=== PATIENT | female | born 1940 | race Caucasian/White ===

== ENCOUNTER 2017-07-05 08:01 | Day surgery (SDC) | payer OTHER, BC ==
[2017-07-05] MEDS ORDERED: VERSED ONE ×2 (08:21→15:35)
[2017-07-05] MEDS ORDERED: NS 500 ML IV 500 ML IV ONE (08:45)
[2017-07-05] MEDS ORDERED: TETRACAINE 0.5% OPHTH 1 DOSE AFFEYE ONE ×3 (09:05→10:41)
[2017-07-05] MEDS ORDERED: VIGAMOX 0.5% OPHTH 1 DOSE AFFEYE ONE ×5 (09:06→11:20)
[2017-07-05] MEDS ORDERED: PROLENSA OPHTH 1 DOSE AFFEYE ONE (09:07)
[2017-07-05] MEDS ORDERED: ALPHAGAN-P OPHTH 1 DOSE AFFEYE ONE (09:14)
[2017-07-05] MEDS ORDERED: CYCLOGYL 1% OPHTH 1 DOSE OP ONE ×3 (09:15→09:22)
[2017-07-05] MEDS ORDERED: AK-DILATE 2.5% OPHTH 1 DOSE OP ONE ×4 (09:16→09:23)
[2017-07-05] MEDS ORDERED: MYDRIACIL OPHTH 1 DOSE AFFEYE ONE ×2 (09:17→09:20)
[2017-07-05] MEDS ORDERED: NS 1/2 1000 ML IV 1,000 ML IV ONE (09:32)
[2017-07-05] MEDS: TETRACAINE 0.5% OPHTH 1 DOSE AFFEYE ONE ×2 (10:11→10:35)
[2017-07-05] MEDS ORDERED: BETADINE OPHTH SOLN 5% EACHEYE ONE (10:41)
[2017-07-05] MEDS ORDERED: ADRENALINE CHL INJ IJ ONE ×2 (10:47→11:08)
[2017-07-05] MEDS ORDERED: XYLOCAINE-MPF 1% IJ ONE ×2 (10:48→11:08)
[2017-07-05] MEDS ORDERED: DUOVISC IO ONE ×2 (10:48→11:08)
[2017-07-05] MEDS ORDERED: BSS OPHTH (PLAIN) 500 ML with VANCOMYCIN HCL 500 MG VIAL 25 MG, ADRENALINE CHL INJ 1 MG IR ONE ×3 (10:51)
[2017-07-05 11:38] VITALS: BP 148/69
== END 2017-07-05 11:50 | disposition home or self-care (01) ==
LOC: SURG1 08:01
PROVIDERS: ATTEND Ophthalmology
PROC: 08DJ3ZZ Extraction of Right Lens, Percutaneous Approach (ICD-10-PCS; principal; 2017-07-05 10:45)
PROC: 08RJ3JZ Replacement of Right Lens with Synthetic Substitute, Percutaneous Approach (ICD-10-PCS; principal; 2017-07-05 10:45)
DX: H25.11 Age-related nuclear cataract, right eye (principal); H25.011 Cortical age-related cataract, right eye; H52.221 Regular astigmatism, right eye
CPT/HCPCS: 99100; A4217; J0170; J2250; J3370